=== PATIENT | female | born 1955 | race Caucasian/White ===

== ENCOUNTER 2018-07-22 15:27 | Outpatient (CLI) | payer OTHER ==
[~2018-07-22 15:27] MED LIST: METFORMIN HCL500 MG; NEPHROCAPS QT1 EACH PO; PERCOCET 5/3251 TAB PO
== END 2018-07-22 15:40 | disposition home or self-care (01) ==
LOC: RAD 15:27
DX: M17.0 Bilateral primary osteoarthritis of knee (principal)

== ENCOUNTER 2018-12-30 15:31 | Outpatient (CLI) | payer OTHER | END 2018-12-30 15:33 | disposition home or self-care (01) | LOC: RAD 15:31 | DX: I11.9 Hypertensive heart disease without heart failure (principal) ==

== ENCOUNTER 2020-01-23 13:32 | Outpatient (CLI) | payer OTHER | END 2020-01-23 13:48 | disposition home or self-care (01) | LOC: LAB 13:32 | PROVIDERS: ATTEND General Practice | DX: R06.02 Shortness of breath (principal); Z11.59 Encounter for screening for other viral diseases; Z20.828 Contact with and (suspected) exposure to other viral communicable diseases; J11.1 Influenza due to unidentified influenza virus with other respiratory manifestations ==

== ENCOUNTER 2020-10-18 14:58 | Outpatient (CLI) | payer OTHER | END 2020-10-18 15:12 | disposition home or self-care (01) | LOC: RAD 14:58 | PROVIDERS: ATTEND Family Medicine | DX: M50.323 Other cervical disc degeneration at C6-C7 level (principal) ==

== ENCOUNTER 2020-10-29 11:32 | Outpatient (CLI) | payer OTHER | END 2020-10-29 11:53 | disposition home or self-care (01) | LOC: MRI 11:32 → RAD 11:32 → MRI 11:53 | PROVIDERS: ATTEND Family Medicine | DX: M47.892 Other spondylosis, cervical region (principal); M54.2 Cervicalgia | CPT/HCPCS: 72141 ==